=== PATIENT | male | born 1965 | race African-American/Black ===

== ENCOUNTER 2018-04-06 16:09 | Emergency (ER) | payer MEDICAID ==
[2018-04-06] MEDS: HYDROCODONE/APAP (5/325) TAB PO (16:48)
== END 2018-04-06 16:51 | disposition home or self-care (01) ==
LOC: FTE 16:09
DX: L03.116 Cellulitis of left lower limb (principal)
CPT/HCPCS: 99283; Z7502

== ENCOUNTER 2018-04-12 22:30 | Inpatient (IN) | payer MEDICAID ==
[2018-04-12 23:27] LABS: ADD MAN DIFF? NO
[2018-04-12 23:29] LABS: WHITE BLOOD COUNT 6.8 10^3/ul (4.8-10.8)
[2018-04-12 23:29] LABS: BASOPHILS % 0.6 % (0.0-2.0); EOSINOPHILS # 0.3 10^3/ul (0.0-0.5); EOSINOPHILS % 4.6 % (0.0-7.0); HEMATOCRIT 39.1 % (42.0-52.0); HEMOGLOBIN 12.8 g/dl (14.0-18.0); IMMATURE GRANS #M 0.01 10^3/ul; IMMATURE GRANS % (M) 0.1 %; LYMPHOCYTES # 1.7 10^3/ul (0.8-2.9); LYMPHOCYTES % 24.6 % (15.0-51.0); MEAN CORPUSCULAR HEMOGLOBIN 29.4 pg (29.0-33.0); MEAN CORPUSCULAR HGB CONC 32.7 g/dl (32.0-37.0); MEAN CORPUSCULAR VOLUME 89.7 fl (82.0-101.0); MEAN PLATELET VOLUME 10.3 fl (7.4-10.4); MONOCYTE # 0.8 10^3/ul (0.3-0.9); MONOCYTES % 11.5 % (0.0-11.0); NEUTROPHILS % 58.6 % (39.0-77.0); PLATELET COUNT 384 10^3/UL (140-415); RED BLOOD COUNT 4.36 10^6/ul (4.70-6.10); RED CELL DISTRIBUTION WIDTH 13.9 % (11.5-14.5)
[2018-04-12 23:35] LABS: ADD UMIC NO; UR ASCORBIC ACID NEGATIVE (NEGATIVE); UR BILIRUBIN (Dip) NEGATIVE (NEGATIVE); UR BLOOD (Dip) NEGATIVE (NEGATIVE); UR CLARITY CLEAR (CLEAR); UR COLOR YELLOW (YELLOW); UR GLUCOSE (Dip) NEGATIVE (NEGATIVE); UR KETONES (Dip) NEGATIVE (NEGATIVE); UR LEUKOCYTE ESTERASE (Dip) NEGATIVE Leu/ul (NEGATIVE); UR NITRITE (Dip) NEGATIVE (NEGATIVE); UR TOTAL PROTEIN (Dip) NEGATIVE (NEGATIVE); UR UROBILINOGEN (Dip) NEGATIVE (NEGATIVE)
[2018-04-12] MEDS: SOD CHLORIDE 0.9% 1,000 ML IV (23:43)
[2018-04-12 23:50] LABS: ALANINE AMINOTRANSFERASE 19 IU/L (13-69); ALBUMIN 4.1 g/dl (3.3-4.9); ALBUMIN/GLOBULIN RATIO 0.97; ALKALINE PHOSPHATASE 79 IU/L (42-121); ANION GAP 13 (8-16); ASPARTATE AMINO TRANSFERASE 33 IU/L (15-46); BILIRUBIN,INDIRECT 0.3 mg/dl (0-1.1); BILIRUBIN,TOTAL 0.3 mg/dl (0.2-1.3); BLOOD UREA NITROGEN 13 mg/dl (7-20); CALCIUM 9.6 mg/dl (8.4-10.2); CARBON DIOXIDE 29 mmol/L (21-31); CHLORIDE 105 mmol/L (97-110); CREATININE 1.14 mg/dl (0.61-1.24); GLUCOSE 78 mg/dl (70-220); SODIUM 143 mmol/L (135-144); TOTAL PROTEIN 8.3 g/dl (6.1-8.1)
[2018-04-12] MEDS: morphine 4 MG/ML VIAL IV (23:55)
[2018-04-12] MEDS: ONDANSETRON 4 MG INJ IV (23:56)
[2018-04-13] MEDS: ONDANSETRON 4 MG INJ IV (00:18)
[2018-04-13] MEDS: morphine 4 MG/ML VIAL IV (00:19)
[2018-04-13] MEDS ORDERED: DOCUSATE SODIUM 100 MG CAP PO (01:00)
[2018-04-13] MEDS ORDERED: VANCOMYCIN IV PER PHARMACY XX (01:00)
[2018-04-13] MEDS ORDERED: BISACODYL (EC) 5 MG TAB PO (01:00)
[2018-04-13] MEDS ORDERED: ONDANSETRON 4 MG TAB PO (01:00)
[2018-04-13] MEDS ORDERED: ACETAMINOPHEN 325 MG TAB PO (01:00)
[2018-04-13] MEDS ORDERED: NACL 0.9% 3 ML SYG IV (01:00)
[2018-04-13 01:14] LABS: B-TYPE NATRIURETIC PEPTIDE 156 PG/ML (0-125)
[2018-04-13 01:29] LABS: C-REACTIVE PROTEIN 1.4 mg/dl (0.0-0.9)
[2018-04-13 02:39] LABS: ERYTHROCYTE SEDIMENTATION RATE 21 mm/Hr (0-20)
[2018-04-13] MEDS: VANCOMYCIN 2 GM in SOD CHLORIDE 0.9% 500 ML IVPB (03:07)
[2018-04-13 05:55] LABS: CHOL/HDL RATIO 3.9 RATIO; CHOLESTEROL 126 mg/dl (100-200); HDL CHOLESTEROL 32 mg/dl (28-71); LDL CHOLESTEROL,CALCULATED 77 mg/dl; TRIGLYCERIDES 87 mg/dl (0-149)
[2018-04-13 05:55] LABS: MAGNESIUM 2.2 mg/dl (1.7-2.5)
[2018-04-13 07:43] LABS: HEMOGLOBIN A1C 5.1 % (0-5.9)
[2018-04-13] MEDS: ENOXAPARIN 40 MG/0.4 ML SYG SC (09:00)
[2018-04-13] MEDS: DIPHENHYDRAMINE 25 MG CAP PO ×2 (09:45→23:23)
[2018-04-13] MEDS: morphine 2 MG INJ IV ×2 (09:47→21:20)
[2018-04-13] MEDS: VANCOMYCIN 1.25 GM in SOD CHLORIDE 0.9% 250 ML IVPB (15:14)
[2018-04-14] MEDS: VANCOMYCIN 1.25 GM in SOD CHLORIDE 0.9% 250 ML IVPB (02:22)
[2018-04-14] MEDS: morphine 2 MG INJ IV ×2 (02:29→06:52)
[2018-04-14 08:03] LABS: ADD MAN DIFF? NO
[2018-04-14 08:08] LABS: BASOPHILS % 0.5 % (0.0-2.0); EOSINOPHILS # 0.4 10^3/ul (0.0-0.5); EOSINOPHILS % 6.1 % (0.0-7.0); HEMATOCRIT 40.9 % (42.0-52.0); IMMATURE GRANS #M 0.01 10^3/ul; IMMATURE GRANS % (M) 0.2 %; LYMPHOCYTES # 2.2 10^3/ul (0.8-2.9); LYMPHOCYTES % 33.5 % (15.0-51.0); MEAN CORPUSCULAR HEMOGLOBIN 29.5 pg (29.0-33.0); MEAN CORPUSCULAR HGB CONC 31.8 g/dl (32.0-37.0); MEAN PLATELET VOLUME 11.5 fl (7.4-10.4); MONOCYTE # 0.6 10^3/ul (0.3-0.9); MONOCYTES % 9.5 % (0.0-11.0); NEUTROPHIL # 3.3 10^3/ul (1.6-7.5); NEUTROPHILS % 50.2 % (39.0-77.0); PLATELET COUNT 393 10^3/UL (140-415)
[2018-04-14 08:08] LABS: WHITE BLOOD COUNT 6.5 10^3/ul (4.8-10.8)
[2018-04-14 08:37] LABS: ALANINE AMINOTRANSFERASE 22 IU/L (13-69); ALBUMIN 3.6 g/dl (3.3-4.9); ALBUMIN/GLOBULIN RATIO 0.97; ALKALINE PHOSPHATASE 77 IU/L (42-121); ANION GAP 13 (8-16); ASPARTATE AMINO TRANSFERASE 23 IU/L (15-46); BLOOD UREA NITROGEN 13 mg/dl (7-20); CALCIUM 8.8 mg/dl (8.4-10.2); CARBON DIOXIDE 28 mmol/L (21-31); CHLORIDE 106 mmol/L (97-110); CREATININE 0.96 mg/dl (0.61-1.24); GLUCOSE 66 mg/dl (70-220); POTASSIUM 4.2 mmol/L (3.5-5.1); SODIUM 143 mmol/L (135-144); TOTAL PROTEIN 7.3 g/dl (6.1-8.1)
[2018-04-14] MEDS: ENOXAPARIN 40 MG/0.4 ML SYG SC (08:42)
[2018-04-14] MEDS: HYDROCODONE/APAP (5/325) TAB PO (11:23)
== END 2018-04-14 11:48 | disposition home or self-care (01) | DRG 603 ==
LOC: FTE 22:30 → PP2 04-13 00:35
DX: L03.116 Cellulitis of left lower limb (principal)
CPT/HCPCS: 36415; 80053; 80061; 81003; 83036; 83735; 83880; 84443; 85025; 85651; 86140; 87040; 93971; 96374; 96375; 99285-25